=== PATIENT | female | born 1990 ===

== ENCOUNTER 2025-03-25 10:07 | Outpatient (CLI) | payer OTHER | END 2025-03-25 10:08 | disposition home or self-care (01) | LOC: PRENATAL 10:07 | PROVIDERS: ATTEND Obstetrics & Gynecology Maternal & Fetal Medicine | DX: O36.80X0 Pregnancy with inconclusive fetal viability, not applicable or unspecified (principal); Z36.82 Encounter for antenatal screening for nuchal translucency; O24.319 Unspecified pre-existing diabetes mellitus in pregnancy, unspecified trimester; Z14.8 Genetic carrier of other disease; O09.519 Supervision of elderly primigravida, unspecified trimester; Z3A.12 12 weeks gestation of pregnancy ==

== ENCOUNTER 2025-05-08 07:46 | Day surgery (SDC) | payer OTHER ==
[~2025-05-08] VITALS: Ht 160 cm; Wt 73.9 kg
[2025-05-08 07:40] VITALS: BP 112/68
[2025-05-08] MEDS ORDERED: CEFAZOLIN SODIUM 1,000 MG VIAL IV SCH (08:30)
[2025-05-08] MEDS ORDERED: RINGERS SOLUTION,LACTATED 1,000 ML IV SCH (08:30)
[2025-05-08 09:03] LABS: BASO % 0.2 % (0.1-1.2); EOS # 0.09 (0.04-0.54); EOS % 1.1 % (0.7-7.0); LYMPH # 1.73 (1.18-3.74); LYMPH % 21.0 % (19.3-53.1); MEAN PLATELET VOLUME 11.30 fl (9.4-12.4); MONO # 0.38 (0.24-0.82); MONO % 4.6 % (4.7-12.5); NEUT # 5.96 (1.56-6.13); NEUT % 72.5 % (34.0-71.1); RED CELL DISTRIBUTION WIDTH 14.4 % (11.6-14.4)
[2025-05-08 09:22] LABS: INR 0.96
[2025-05-08 09:44] LABS: ALT/SGPT 13.0 U/L (12-78); AST/SGOT 7.0 U/L (15-37); BILIRUBIN TOTAL 0.26 mg/dL (0.3-1.2); BUN CREA RATIO 22.0 (7.0-25.0); CREATININE SERUM 0.46 mg/dL (0.55-1.02); GFR 154.58; GLOBULINA 3.3 G/DL (2.4-3.5); GLUCOSE FASTING 78.0 mg/dL (65-100); OSMOLALITY SERUM 281.0 MOSM/KG (275-295)
[2025-05-08] MEDS ORDERED: POVIDONE-IODINE 118 ML BOTT TOP ONE (10:45)
[2025-05-08] MEDS ORDERED: MORPHINE SULFATE 4 MG/ML CARTRIDGE IV PRN (11:15)
[2025-05-08] MEDS ORDERED: PROMETHAZINE HCL 50 MG/ML AMPUL IM ONE ×2 (11:15→12:15)
[2025-05-08] MEDS ORDERED: MORPHINE SULFATE 4 MG/ML VIAL IV ONE (12:45)
== END 2025-05-08 17:30 | disposition home or self-care (01) ==
LOC: LDR 07:46 → CIR.AMB 07:46 → EDSTATUS 09:30 → O/R 13:57 → LDR 13:57 → O/R 17:30 → CIR.AMB 17:30
PROVIDERS: ATTEND Obstetrics & Gynecology
DX: O34.32 Maternal care for cervical incompetence, second trimester (principal); Z3A.18 18 weeks gestation of pregnancy

== ENCOUNTER 2025-06-01 15:26 | Inpatient (IN) | payer OTHER ==
[~2025-06-01] VITALS: Ht 160 cm; Wt 73.0 kg
[2025-06-01 15:46] VITALS: BP 110/71
[2025-06-01] MEDS ORDERED: MAGNESIUM SULFATE IN WATER 500 ML IV SCH (16:15)
[2025-06-01] MEDS ORDERED: RINGERS SOLUTION,LACTATED 1,000 ML IV SCH (16:15)
[2025-06-01 16:27] LABS: BASO % 0.4 % (0.1-1.2); EOS # 0.13 (0.04-0.54); EOS % 1.2 % (0.7-7.0); LYMPH # 1.43 (1.18-3.74); LYMPH % 13.4 % (19.3-53.1); MEAN PLATELET VOLUME 11.40 fl (9.4-12.4); MONO # 0.43 (0.24-0.82); MONO % 4.0 % (4.7-12.5); NEUT # 8.58 (1.56-6.13); NEUT % 80.5 % (34.0-71.1); RED CELL DISTRIBUTION WIDTH 13.7 % (11.6-14.4)
[2025-06-01 16:28] LABS: URINE APPEARANCE Cloudy; URINE BILIRRUBIN Negative (NEGATIVE); URINE BLOOD Negative; URINE COLOR Yellow; URINE GLUCOSE Negative (NEGATIVE); URINE KETONE Negative (NEGATIVE); URINE LEUKOCYTE Negative; URINE NITRATE Negative; URINE PROTEIN Trace (NEGATIVE); URINE UROBILINOGEN 0.2 E.U./dl
[2025-06-01 16:31] LABS: URINE BACTERIA 471.5 uL (0.0-1933); URINE EPITHELIAL CELLS 10.4 uL (0.0-38.8); URINE WBC 10.3 uL (0.0-23.2)
[2025-06-01 16:42] LABS: URINE CAST 0.14 uL (0.0-1.40); URINE RBC 1.9 uL (0.0-20.8)
[2025-06-01 16:49] LABS: INR 0.95
[2025-06-01 16:53] LABS: ALT/SGPT 13.0 U/L (12-78); AST/SGOT 9.0 U/L (15-37); BILIRUBIN TOTAL 0.2 mg/dL (0.3-1.2); BUN CREA RATIO 19.0 (7.0-25.0); CREATININE SERUM 0.53 mg/dL (0.55-1.02); GFR 131.27; GLOBULINA 3.9 G/DL (2.4-3.5); GLUCOSE FASTING 82.0 mg/dL (65-100); OSMOLALITY SERUM 281.0 MOSM/KG (275-295)
[2025-06-01] MEDS ORDERED: MetFORMIN HCL 500 MG TABLET PO SCH (17:00)
[2025-06-01] MEDS ORDERED: PRENATA CHEWAB1 EACH PO (17:46)
[2025-06-01] MEDS ORDERED: METFORMIN HCL500 M3 PO (17:46)
[2025-06-01 19:44] VITALS: BP 103/66
[2025-06-01] MEDS ORDERED: PROGESTERONE 200 MG VAG SCH (21:00)
[2025-06-01 23:47] VITALS: BP 108/67
[2025-06-02 03:45] VITALS: BP 107/69
[2025-06-02 06:19] VITALS: BP 108/63; O2SAT 99
[2025-06-02 11:12] VITALS: BP 101/63
[2025-06-02] MEDS ORDERED: ACETAMINOPHEN 500 MG GEL..CAP PO ONE (11:45)
[2025-06-02 15:14] VITALS: BP 95/60; O2SAT 100
[2025-06-02 19:48] VITALS: BP 111/72
[2025-06-02 23:24] VITALS: BP 110/68; O2SAT 100
[2025-06-03 03:02] VITALS: BP 109/69; O2SAT 100
[2025-06-03 06:45] VITALS: BP 99/61; O2SAT 98
== END 2025-06-03 09:32 | disposition home or self-care (01) | DRG 833 ==
LOC: LDR 15:26
PROVIDERS: ADMIT Obstetrics & Gynecology Gynecology; ATTEND Obstetrics & Gynecology Gynecology
PROC: 4A1HXCZ Monitoring of Products of Conception, Cardiac Rate, External Approach (ICD-10-PCS; principal; 2025-06-01)
DX: O34.32 Maternal care for cervical incompetence, second trimester (principal); Z3A.21 21 weeks gestation of pregnancy

== ENCOUNTER 2025-06-13 11:03 | Outpatient (CLI) | payer OTHER ==
[2025-06-13 10:26] VITALS: BP 112/69; O2SAT 100
[~2025-06-13 11:03] MED LIST: METFORMIN HCL500 M3 PO; PRENATA CHEWAB1 EACH PO
[2025-06-13] MEDS ORDERED: NIFEDIPINE20 MG PO (11:07)
[2025-06-13 11:58] VITALS: BP 112/69
== END 2025-06-13 11:58 | disposition home or self-care (01) ==
LOC: OBS/DEL 11:03
PROVIDERS: ATTEND Obstetrics & Gynecology Gynecology
DX: O26.892 Other specified pregnancy related conditions, second trimester (principal); Z3A.23 23 weeks gestation of pregnancy

== ENCOUNTER 2025-06-18 13:07 | Outpatient (CLI) | payer OTHER ==
[~2025-06-18 13:07] MED LIST changes: +NIFEDIPINE20 MG PO
== END 2025-06-18 13:45 | disposition home or self-care (01) ==
LOC: NST 13:07
PROVIDERS: ATTEND Obstetrics & Gynecology Maternal & Fetal Medicine
DX: Z34.82 Encounter for supervision of other normal pregnancy, second trimester (principal)

== ENCOUNTER 2025-07-02 12:56 | Inpatient (IN) | payer OTHER ==
[~2025-07-02] VITALS: Ht 160 cm; Wt 74.8 kg
[2025-07-02 13:23] VITALS: BP 102/66
[2025-07-02] MEDS ORDERED: BETAMETHASONE ACETATE,SOD PHOS 30 MG/5 ML ML ONE (13:36)
[2025-07-02] MEDS ORDERED: RINGERS SOLUTION,LACTATED 1,000 ML IV SCH (14:00)
[2025-07-02] MEDS ORDERED: BETAMETHASONE ACETATE,SOD PHOS 30 MG/5 ML ML IM ONE (14:00)
[2025-07-02 14:19] LABS: BASO % 0.3 % (0.1-1.2); EOS # 0.10 (0.04-0.54); EOS % 0.9 % (0.7-7.0); LYMPH # 1.44 (1.18-3.74); LYMPH % 13.2 % (19.3-53.1); MEAN PLATELET VOLUME 10.90 fl (9.4-12.4); MONO # 0.58 (0.24-0.82); MONO % 5.3 % (4.7-12.5); NEUT # 8.64 (1.56-6.13); NEUT % 79.4 % (34.0-71.1); RED CELL DISTRIBUTION WIDTH 13.0 % (11.6-14.4)
[2025-07-02 16:10] VITALS: BP 98/63
[2025-07-02 20:53] VITALS: BP 97/60
[2025-07-02] MEDS ORDERED: PATIENTS OWN MEDICATION (MEDICAMENTO EN PISO NEVERA) VAG SCH (21:00)
[2025-07-02] MEDS ORDERED: NIFEDIPINE 30 MG TAB.SA.OSM PO SCH (21:00)
[2025-07-02 23:26] VITALS: BP 116/73
[2025-07-03 02:56] VITALS: BP 103/68
[2025-07-03 06:33] VITALS: BP 94/57; O2SAT 98
[2025-07-03 12:19] VITALS: BP 79/51; O2SAT 97
[2025-07-03] MEDS ORDERED: BETAMETHASONE ACETATE,SOD PHOS 30 MG/5 ML ML IM ONE (14:00)
[2025-07-03] MEDS ORDERED: ACETAMINOPHEN 500 MG GEL..CAP PO ONE ×2 (14:10→14:45)
[2025-07-03] MEDS ORDERED: DIPHENHYDRAMINE HCL 50 MG/ML VIAL 1ML IV PRN (14:45)
[2025-07-03 15:06] VITALS: BP 90/55
[2025-07-03] MEDS ORDERED: MAGNESIUM SULFATE IN WATER 4 GM/100 ML PIGGYBACK IV ONE (15:36)
[2025-07-03] MEDS ORDERED: MAGNESIUM SULFATE IN WATER 0.04 GM/ML IV.SOLN IV ONE (15:37)
[2025-07-03] MEDS ORDERED: DOCUSATE SODIUM 100MG CAP PO SCH (17:00)
[2025-07-03] MEDS ORDERED: MAGNESIUM SULFATE IN WATER 100 ML IV ONE (18:00)
[2025-07-03] MEDS ORDERED: MAGNESIUM SULFATE IN WATER 500 ML IV SCH (18:30)
[2025-07-03 20:00] VITALS: BP 110/70
[2025-07-03 23:13] VITALS: BP 81/52
[2025-07-04 04:55] VITALS: BP 92/59
[2025-07-04 07:27] VITALS: BP 116/69
[2025-07-04 11:00] VITALS: BP 112/61
[2025-07-04] MEDS ORDERED: MetFORMIN HCL 500 MG TABLET PO SCH (13:27)
[2025-07-04 14:30] VITALS: BP 105/65
[2025-07-04 17:02] VITALS: BP 105/68
[2025-07-04] MEDS ORDERED: NIFEDIPINE 30 MG TAB.SA.OSM PO SCH (18:00)
[2025-07-05] VITALS: BP 92/55
[2025-07-05 08:45] VITALS: BP 95/56
[2025-07-05 16:35] VITALS: BP 100/64
[2025-07-06] VITALS: BP 98/60
[2025-07-06] MEDS ORDERED: NIFEDIPINE 30 MG TAB.SA.OSM PO SCH (09:00)
[2025-07-06 09:04] VITALS: BP 108/69
[2025-07-06 16:53] VITALS: BP 102/64
[2025-07-07 00:19] VITALS: BP 104/61
[2025-07-07 08:45] VITALS: BP 107/67
[2025-07-07] MEDS ORDERED: ENOXAPARIN SODIUM 40 MG/0.4 ML SYRINGE SUBCUTANEO SCH (09:00)
[2025-07-07] MEDS ORDERED: DOCUSATE SODIUM 100MG CAP PO SCH (09:00)
[2025-07-07 16:00] VITALS: BP 103/63
[2025-07-08] VITALS: BP 99/55
[2025-07-08 07:47] VITALS: BP 109/68
[2025-07-08 16:00] VITALS: BP 107/63
[2025-07-09 01:30] VITALS: BP 110/71
[2025-07-09 08:17] VITALS: BP 102/62
[2025-07-09 16:23] VITALS: BP 104/65
[2025-07-10 01:19] VITALS: BP 109/67
[2025-07-10 08:21] VITALS: BP 105/65
[2025-07-10 15:24] VITALS: BP 108/65
[2025-07-10] MEDS ORDERED: DOCUSATE SODIUM 100MG CAP PO SCH (17:00)
[2025-07-11 00:58] VITALS: BP 101/64
[2025-07-11 08:00] VITALS: BP 109/68
[2025-07-11 16:45] VITALS: BP 104/68; O2SAT 98
[2025-07-12 00:31] VITALS: BP 101/63
[2025-07-12 07:46] LABS: BASO % 0.4 % (0.1-1.2); EOS # 0.19 (0.04-0.54); EOS % 1.7 % (0.7-7.0); LYMPH # 2.72 (1.18-3.74); LYMPH % 23.8 % (19.3-53.1); MEAN PLATELET VOLUME 11.40 fl (9.4-12.4); MONO # 0.67 (0.24-0.82); MONO % 5.9 % (4.7-12.5); NEUT # 7.60 (1.56-6.13); NEUT % 66.4 % (34.0-71.1); RED CELL DISTRIBUTION WIDTH 12.7 % (11.6-14.4)
[2025-07-12 08:23] LABS: ALT/SGPT 9.0 U/L (12-78); AST/SGOT 8.0 U/L (15-37); BILIRUBIN TOTAL 0.14 mg/dL (0.3-1.2); BUN CREA RATIO 18.0 (7.0-25.0); CREATININE SERUM 0.44 mg/dL (0.55-1.02); GFR 162.72; GLOBULINA 3.4 G/DL (2.4-3.5); GLUCOSE FASTING 104.0 mg/dL (65-100); OSMOLALITY SERUM 278.0 MOSM/KG (275-295)
[2025-07-12 08:38] VITALS: BP 116/68
[2025-07-12] MEDS ORDERED: IRON/V.C/V.B12/FOLIC A/VIT. E 1 CAPL CAPLET PO NR (10:16)
[2025-07-12 16:20] VITALS: BP 110/72; O2SAT 98
[2025-07-13 00:20] VITALS: BP 105/63
[2025-07-13 08:17] VITALS: BP 110/68
[2025-07-13] MEDS ORDERED: IRON/V.C/V.B12/FOLIC A/VIT. E 1 CAPL CAPLET PO SCH (09:00)
[2025-07-13 16:40] VITALS: BP 123/73
[2025-07-14] VITALS: BP 102/63
[2025-07-14 08:22] VITALS: BP 99/62
[2025-07-14 17:12] VITALS: BP 107/69
[2025-07-15] VITALS: BP 106/65
[2025-07-15 08:18] VITALS: BP 102/64
[2025-07-15 19:27] VITALS: BP 109/71
[2025-07-16 00:56] VITALS: BP 101/64
[2025-07-16 08:36] VITALS: BP 105/62; O2SAT 98
[2025-07-16 19:02] VITALS: BP 107/68
[2025-07-17 08:38] VITALS: BP 107/66; O2SAT 98
[2025-07-17 16:53] VITALS: BP 101/63
[2025-07-18] VITALS: BP 113/68
[2025-07-18 05:43] VITALS: BP 128/78; O2SAT 97
[2025-07-18 08:00] VITALS: BP 96/60
[2025-07-18 16:00] VITALS: BP 108/70
[2025-07-19] VITALS: BP 106/69
[2025-07-19 08:00] VITALS: BP 117/72
[2025-07-19 08:18] LABS: BASO % 0.3 % (0.1-1.2); EOS # 0.20 (0.04-0.54); EOS % 1.7 % (0.7-7.0); LYMPH # 2.54 (1.18-3.74); LYMPH % 22.0 % (19.3-53.1); MEAN PLATELET VOLUME 11.40 fl (9.4-12.4); MONO # 0.76 (0.24-0.82); MONO % 6.6 % (4.7-12.5); NEUT # 7.75 (1.56-6.13); NEUT % 67.1 % (34.0-71.1); RED CELL DISTRIBUTION WIDTH 13.2 % (11.6-14.4)
[2025-07-19 08:51] LABS: ALT/SGPT 10.0 U/L (12-78); AST/SGOT 6.0 U/L (15-37); BILIRUBIN TOTAL 0.17 mg/dL (0.3-1.2); BUN CREA RATIO 22.0 (7.0-25.0); CREATININE SERUM 0.45 mg/dL (0.55-1.02); GFR 158.56; GLOBULINA 3.3 G/DL (2.4-3.5); GLUCOSE FASTING 126.0 mg/dL (65-100); OSMOLALITY SERUM 284.0 MOSM/KG (275-295)
[2025-07-19 16:49] VITALS: BP 97/65
[2025-07-19] MEDS ORDERED: ACETAMINOPHEN 500 MG GEL..CAP PO PRN (17:30)
[2025-07-20] VITALS: BP 98/62
[2025-07-20 07:58] VITALS: BP 104/66
[2025-07-20 15:52] VITALS: BP 102/64
[2025-07-21] VITALS: BP 110/65
[2025-07-21 08:07] VITALS: BP 95/60
[2025-07-21 16:06] VITALS: BP 103/63
[2025-07-22 01:21] VITALS: BP 104/66
[2025-07-22 08:16] VITALS: BP 102/62
[2025-07-23 01:25] VITALS: BP 99/61
[2025-07-23 09:21] VITALS: BP 104/63
[2025-07-23 16:31] VITALS: BP 113/74
[2025-07-24] VITALS: BP 99/65
[2025-07-24] MEDS ORDERED: DIPHTH,PERTUSS(ACELL),TET VAC 0.5 ML SYRINGE IM NR (08:00)
[2025-07-24 08:44] VITALS: BP 102/64
[2025-07-24 16:45] VITALS: BP 100/66
[2025-07-25] VITALS: BP 97/70
[2025-07-25 08:00] VITALS: BP 97/65
[2025-07-25 16:00] VITALS: BP 97/60
[2025-07-26] VITALS: BP 104/68
[2025-07-26 09:00] VITALS: BP 105/63
[2025-07-26 16:50] VITALS: BP 101/55; O2SAT 0
[2025-07-27] VITALS: BP 107/72
[2025-07-27 07:30] VITALS: BP 103/66
[2025-07-27 16:00] VITALS: BP 105/66
[2025-07-28] VITALS: BP 94/60
[2025-07-28 10:00] VITALS: BP 101/63
[2025-07-28 16:19] VITALS: BP 107/70
[2025-07-28 23:56] VITALS: BP 97/66
[2025-07-29 08:17] VITALS: BP 101/62
[2025-07-29 16:33] VITALS: BP 112/71
[2025-07-30 00:43] VITALS: BP 106/70
[2025-07-30 08:44] VITALS: BP 100/64; O2SAT 98
[2025-07-30 19:15] VITALS: BP 105/67
[2025-07-31] VITALS: BP 106/69
[2025-07-31 09:39] VITALS: BP 115/66
[2025-07-31] MEDS ORDERED: TERBUTALINE SULFATE 1 MG/ML AMPUL SUBCUTANEO STA (14:04)
[2025-07-31 16:48] VITALS: BP 109/67
[2025-08-01 01:21] VITALS: BP 111/70
[2025-08-01 08:46] VITALS: BP 99/62
[2025-08-01 20:00] VITALS: BP 101/68
[2025-08-02] VITALS: BP 101/64
[2025-08-02 08:00] VITALS: BP 95/60
[2025-08-02 16:10] VITALS: BP 111/70
[2025-08-03] VITALS: BP 110/67
[2025-08-03 08:18] VITALS: BP 101/64
[2025-08-03 16:16] VITALS: BP 104/65
[2025-08-04 00:41] VITALS: BP 102/66
[2025-08-04 08:00] VITALS: BP 97/60
[2025-08-04 09:01] LABS: BASO % 0.3 % (0.1-1.2); EOS # 0.11 (0.04-0.54); EOS % 1.1 % (0.7-7.0); LYMPH # 2.20 (1.18-3.74); LYMPH % 22.1 % (19.3-53.1); MEAN PLATELET VOLUME 10.90 fl (9.4-12.4); MONO # 0.57 (0.24-0.82); MONO % 5.7 % (4.7-12.5); NEUT # 6.76 (1.56-6.13); NEUT % 68.1 % (34.0-71.1); RED CELL DISTRIBUTION WIDTH 13.7 % (11.6-14.4)
[2025-08-04 10:02] LABS: ALT/SGPT 8.0 U/L (12-78); AST/SGOT 10.0 U/L (15-37); BILIRUBIN TOTAL 0.22 mg/dL (0.3-1.2); BUN CREA RATIO 15.0 (7.0-25.0); CREATININE SERUM 0.41 mg/dL (0.55-1.02); GFR 176.54; GLOBULINA 3.4 G/DL (2.4-3.5); GLUCOSE FASTING 85.0 mg/dL (65-100); OSMOLALITY SERUM 278.0 MOSM/KG (275-295)
[2025-08-04 16:39] VITALS: BP 99/62
[2025-08-05 00:19] VITALS: BP 100/66
[2025-08-05 08:00] VITALS: BP 96/56
[2025-08-05 20:13] VITALS: BP 104/65
[2025-08-06] VITALS: BP 107/67
[2025-08-06 09:10] VITALS: BP 95/60
[2025-08-06 19:49] VITALS: BP 111/71
[2025-08-07] VITALS: BP 99/61
[2025-08-07 08:21] VITALS: BP 96/55
[2025-08-07 18:49] VITALS: BP 100/65
[2025-08-08 00:15] VITALS: BP 100/64
[2025-08-08 08:46] VITALS: BP 95/57
[2025-08-08 16:00] VITALS: BP 105/64
[2025-08-09 01:18] VITALS: BP 101/67
[2025-08-09 08:00] VITALS: BP 101/62
[2025-08-09 17:35] VITALS: BP 114/74
[2025-08-09] MEDS ORDERED: METROnidazole 70 GM GEL.W.APPL VAG SCH (21:00)
[2025-08-10 00:10] VITALS: BP 109/68
[2025-08-10 08:00] VITALS: BP 102/65
[2025-08-10 17:16] VITALS: BP 104/68
[2025-08-11 00:14] VITALS: BP 105/66
[2025-08-11 08:16] VITALS: BP 96/60
[2025-08-11 16:21] VITALS: BP 111/68
[2025-08-12 02:28] VITALS: BP 98/59
[2025-08-12 08:07] VITALS: BP 100/61
[2025-08-12 17:40] VITALS: BP 110/71
[2025-08-13 00:19] VITALS: BP 102/65
[2025-08-13 08:00] VITALS: BP 112/69
[2025-08-13 16:12] VITALS: BP 99/61
[2025-08-14 02:26] VITALS: BP 111/68
[2025-08-14 08:00] VITALS: BP 95/61
[2025-08-14 16:13] VITALS: BP 113/69
[2025-08-15 01:53] VITALS: BP 104/64
[2025-08-15 08:51] VITALS: BP 97/61
[2025-08-15 16:00] VITALS: BP 100/60
[2025-08-16 00:20] VITALS: BP 119/72
[2025-08-16 09:31] VITALS: BP 102/63
[2025-08-16 16:58] VITALS: BP 106/60
[2025-08-17 02:45] VITALS: BP 97/61
[2025-08-17 08:41] VITALS: BP 100/60
[2025-08-17 16:18] VITALS: BP 103/68
[2025-08-18] VITALS: BP 101/61
[2025-08-18 09:24] VITALS: BP 114/76
[2025-08-18 15:40] VITALS: BP 105/63
[2025-08-19] VITALS: BP 109/71
[2025-08-19 08:00] VITALS: BP 122/76
== END 2025-08-19 10:08 | disposition home or self-care (01) | DRG 831 ==
LOC: LDR 12:56 → OB/GYN 07-04 13:02
PROVIDERS: Obstetrics & Gynecology; ADMIT Obstetrics & Gynecology; ATTEND Obstetrics & Gynecology
PROC: 4A1HXCZ Monitoring of Products of Conception, Cardiac Rate, External Approach (ICD-10-PCS; principal; 2025-07-02)
PROC: BY4CZZZ Ultrasonography of Second Trimester, Single Fetus (ICD-10-PCS; 2025-07-03)
PROC: BY4CZZZ Ultrasonography of Second Trimester, Single Fetus (ICD-10-PCS; 2025-07-14)
PROC: BU4CZZZ Ultrasonography of Uterus and Ovaries (ICD-10-PCS; 2025-07-14)
PROC: BY4FZZZ Ultrasonography of Third Trimester, Single Fetus (ICD-10-PCS; 2025-07-27)
PROC: BU4CZZZ Ultrasonography of Uterus and Ovaries (ICD-10-PCS; 2025-07-27)
PROC: BY4FZZZ Ultrasonography of Third Trimester, Single Fetus (ICD-10-PCS; 2025-08-11)
PROC: BU4CZZZ Ultrasonography of Uterus and Ovaries (ICD-10-PCS; 2025-08-11)
DX: O36.8120 Decreased fetal movements, second trimester, not applicable or unspecified (principal); O34.32 Maternal care for cervical incompetence, second trimester; O34.33 Maternal care for cervical incompetence, third trimester; O24.312 Unspecified pre-existing diabetes mellitus in pregnancy, second trimester; O24.313 Unspecified pre-existing diabetes mellitus in pregnancy, third trimester; O36.8130 Decreased fetal movements, third trimester, not applicable or unspecified; O26.842 Uterine size-date discrepancy, second trimester; O26.843 Uterine size-date discrepancy, third trimester; O26.73 Subluxation of symphysis (pubis) in the puerperium; O26.72 Subluxation of symphysis (pubis) in childbirth; O33.9 Maternal care for disproportion, unspecified; Z3A.27 27 weeks gestation of pregnancy

== ENCOUNTER 2025-08-23 03:28 | Inpatient (IN) | payer OTHER ==
[~2025-08-23] VITALS: Ht 160 cm; Wt 74.8 kg
[2025-08-23] VITALS (7 sets, daily range): BP systolic 105–126; BP diastolic 62–78; O2SAT 100
[2025-08-23] MEDS ORDERED: NIFEDIPINE 30 MG TAB.SA.OSM PO STA (03:32)
[2025-08-23] MEDS ORDERED: NIFEDIPINE 30 MG TAB.SA.OSM PO ONE (03:36)
[2025-08-23] MEDS ORDERED: RINGERS SOLUTION,LACTATED 1,000 ML IV SCH (03:45)
[2025-08-23] MEDS ORDERED: NIFEDIPINE20 MG PO (04:39)
[2025-08-23 04:53] LABS: BASO % 0.2 % (0.1-1.2); EOS # 0.13 (0.04-0.54); EOS % 1.0 % (0.7-7.0); LYMPH # 1.99 (1.18-3.74); LYMPH % 16.0 % (19.3-53.1); MEAN PLATELET VOLUME 11.80 fl (9.4-12.4); MONO # 0.63 (0.24-0.82); MONO % 5.1 % (4.7-12.5); NEUT # 9.53 (1.56-6.13); NEUT % 76.4 % (34.0-71.1); RED CELL DISTRIBUTION WIDTH 14.2 % (11.6-14.4)
[2025-08-23 05:11] LABS: INR 0.94
[2025-08-23 05:14] LABS: ALT/SGPT 14.0 U/L (12-78); AST/SGOT 8.0 U/L (15-37); BILIRUBIN TOTAL 0.26 mg/dL (0.3-1.2); BUN CREA RATIO 19.0 (7.0-25.0); CREATININE SERUM 0.42 mg/dL (0.55-1.02); GFR 171.69; GLOBULINA 3.3 G/DL (2.4-3.5); GLUCOSE FASTING 125.0 mg/dL (65-100); OSMOLALITY SERUM 281.0 MOSM/KG (275-295)
[2025-08-23] MEDS ORDERED: BETAMETHASONE ACETATE,SOD PHOS 30 MG/5 ML ML IM ONE (05:15)
[2025-08-23] MEDS ORDERED: AMPICILLIN SODIUM 2,000 MG VIAL IV SCH (06:00)
[2025-08-23] MEDS ORDERED: MetFORMIN HCL 500 MG TABLET PO SCH (09:00)
[2025-08-23] MEDS ORDERED: NIFEDIPINE 30 MG TAB.SA.OSM PO SCH (09:00)
[2025-08-23] MEDS ORDERED: MAGNESIUM SULFATE IN WATER 0.04 GM/ML IV.SOLN IV ONE (11:26)
[2025-08-23] MEDS ORDERED: MAGNESIUM SULFATE IN WATER 500 ML IV SCH (11:30)
[2025-08-24 04:00] VITALS: BP 112/67
[2025-08-24] MEDS ORDERED: BETAMETHASONE ACETATE,SOD PHOS 30 MG/5 ML ML IM ONE (05:30)
[2025-08-24 06:23] VITALS: BP 109/70; O2SAT 97
[2025-08-24] MEDS ORDERED: PNV,CALCIUM 72/IRON/FOLIC ACID 1 TAB TABLET PO SCH (09:00)
[2025-08-24 10:54] VITALS: BP 110/69
[2025-08-24 15:29] VITALS: BP 108/67
[2025-08-24 18:28] VITALS: BP 97/55
[2025-08-24] MEDS ORDERED: MAGNESIUM SULFATE IN WATER 0.04 GM/ML IV.SOLN IV ONE (23:11)
[2025-08-24 23:34] VITALS: BP 108/69
[2025-08-25] MEDS ORDERED: MAGNESIUM SULFATE IN WATER 500 ML IV SCH (00:15)
[2025-08-25 03:35] VITALS: BP 99/60
[2025-08-25 06:15] VITALS: BP 105/63; O2SAT 98
[2025-08-25 10:36] VITALS: BP 113/71
[2025-08-25 15:51] VITALS: BP 103/54
[2025-08-25 19:08] VITALS: BP 115/66
[2025-08-25 23:42] VITALS: BP 108/60
[2025-08-26] VITALS (8 sets, daily range): BP systolic 107–135; BP diastolic 58–97
[2025-08-26] MEDS ORDERED: OXYTOCIN 500 ML IV ONE (07:00)
[2025-08-26] MEDS ORDERED: OXYTOCIN 20 UNITS/500ML RL PIGGYBAG IV ONE (07:21)
[2025-08-26] MEDS ORDERED: ERYTHROMYCIN BASE OPHT 1GM EACH TUBE OP ONE ×2 (08:37→18:30)
[2025-08-26] MEDS ORDERED: OXYTOCIN 20 UNITS/1000ML RL PIGGYBAG IV ONE (08:37)
[2025-08-26] MEDS ORDERED: CHLORHEXIDINE GLUCONATE 120 ML BOTTLE TOP ONE ×2 (08:37→18:30)
[2025-08-26] MEDS ORDERED: LIDOCAINE HCL 1% 10ML VIAL ONE (08:37)
[2025-08-26] MEDS ORDERED: MORPHINE SULFATE 4 MG/ML CARTRIDGE IV ONE (13:00)
[2025-08-26] MEDS ORDERED: OXYTOCIN 1,000 ML IV SCH (18:15)
[2025-08-26] MEDS ORDERED: ACETAMINOPHEN WITH CODEINE 1 UDTAB TABLET PO PRN (18:15)
[2025-08-26] MEDS ORDERED: CHLORHEXIDINE GLUCONATE 120 ML BOTTLE TP SCH (18:15)
[2025-08-26] MEDS ORDERED: LIDOCAINE HCL 1% 10ML VIAL IJ ONE (18:30)
[2025-08-26] MEDS ORDERED: DOCUSATE SODIUM 100MG CAP PO NR (19:00)
[2025-08-26] MEDS ORDERED: ACETAMINOPHEN 500 MG GEL..CAP PO ONE ×2 (19:39→20:45)
[2025-08-27 01:52] VITALS: BP 106/60
[2025-08-27 08:00] VITALS: BP 118/74
[2025-08-27] MEDS ORDERED: DOCUSATE SODIUM 100MG CAP PO SCH (09:00)
[2025-08-27 17:32] VITALS: BP 106/68
[2025-08-27] MEDS ORDERED: BENZOCAINE/MENTHOL 90 ML BOTTLE TOP PRN (18:30)
[2025-08-28 01:10] VITALS: BP 108/65
[2025-08-28 08:00] VITALS: BP 125/75
== END 2025-08-28 14:57 | disposition home or self-care (01) | DRG 768 ==
LOC: OB/GYN 03:28 → LDR 03:28 → OB/GYN 08-26 18:06
PROVIDERS: ADMIT Obstetrics & Gynecology; ATTEND Obstetrics & Gynecology
PROC: 4A1HXCZ Monitoring of Products of Conception, Cardiac Rate, External Approach (ICD-10-PCS; 2025-08-23)
PROC: BY4FZZZ Ultrasonography of Third Trimester, Single Fetus (ICD-10-PCS; 2025-08-23)
PROC: 10D07Z6 Extraction of Products of Conception, Vacuum, Via Natural or Artificial Opening (ICD-10-PCS; principal; 2025-08-26)
PROC: 0UQG7ZZ Repair Vagina, Via Natural or Artificial Opening (ICD-10-PCS; 2025-08-26)
PROC: 0W8NXZZ Division of Female Perineum, External Approach (ICD-10-PCS; 2025-08-26)
PROC: 0UCC7ZZ Extirpation of Matter from Cervix, Via Natural or Artificial Opening (ICD-10-PCS; 2025-08-26)
DX: O71.4 Obstetric high vaginal laceration alone (principal); Z37.0 Single live birth; O60.14X0 Preterm labor third trimester with preterm delivery third trimester, not applicable or unspecified; O34.33 Maternal care for cervical incompetence, third trimester; O42.013 Preterm premature rupture of membranes, onset of labor within 24 hours of rupture, third trimester; O66.5 Attempted application of vacuum extractor and forceps; Z3A.33 33 weeks gestation of pregnancy